=== PATIENT | female | born 1980 | race Caucasian/White ===

== ENCOUNTER 2024-05-13 00:04 | Day surgery (SDC) | payer OTHER, SELFPAY ==
[2024-05-06 15:24] VITALS: BMI 45.1
--- NOTE | 2024-05-06 15:33 | PC.NURSE ---
Report to the Outpatient Waiting Room, entrance under the green pavilion located off [facility], at time _0600_ on date _[id number]_. Planned Procedure Time: _0730_.? Time changes happen often and if your time is changed the preop area will call you the afternoon before. - You and your visitor will be asked to self-screen and do not enter if you have any COVID symptoms. Please call surgeon if you need to reschedule. - A mask is optional within the hospital at this time. Patients may have clear liquids (water, carbonated beverages, clear teas, apple juice) until 3 hours prior to surgery with a maximum of 20 ounces. - No food from midnight until time of surgery and no smoking Take only the following medications with a SIP of water on the morning of surgery: ____Advair, Flonase and Sertraline____ DO NOT STOP ANY OF YOUR OTHER PRESCRIPTION MEDICATIONS PRIOR TO SURGERY EXCEPT THE FOLLOWING Medications to discontinue per physician ___None___ Please no make-up, nail azeri, hairspray, perfume, deodorant, or body powder the day of surgery.? No jewelry (including any body piercings) or valuables the day of surgery, leave them at home.? Please take a shower or bath the night before, or the morning of, surgery with an antibacterial soap.? Wear comfortable, loose fitting clothing.? - Jewelry must be removed prior to entering the operating room.? Rings and piercings that are not removed may be cut off. - The hospital will not accept responsibility for valuables.? - Please leave all valuables, including medications, at home the day of surgery. If you are going home after surgery, a licensed road driver must drive you home.? - NO public transportation without another adult if you receive anesthesia. - We recommend that an adult stay with you for 24 hours following discharge. - We also recommend that you do not drive, make important decision, drink alcoholic beverages, or take any drugs that were not prescribed by your health care provider for at least 24 hours after your discharge time. Follow any additional instructions given to you from your surgeon. Telephone instructions given to __Melodie__and asked if any additional questions and then verbalized understanding. Patient advised to call surgeon office or pre surgery nurse liaison [phone] if any additional questions.
[2024-05-13 06:11] VITALS: BP 141/76; PULSE 57; RESP 18; TEMP 36.1; O2SAT 99
[2024-05-13] MEDS: ACETAMINOPHEN 500 MG TABLET 1000 MG PO (06:30)
[2024-05-13] MEDS: LACTATED RINGERS 1,000 ML 30 ML IV CONT (06:35)
--- NOTE | 2024-05-13 06:49 | P.PNAN_ITS ---
Anes - Initial Pre Proc Eval Procedure: Operation Date: 05/13/24 07:30 Proposed Procedures p Hysteroscopy Dilation and Curettage - Mar George MD Date/Time: 05/13/24 06:49 Surgeon: Mar George MD Pre Op Diagnosis: menorrhagia Patient Data Age: 44 Gender: F Height: 1.7 m Weight: 130.9 kg Allergies Allergy/AdvReac Type Severity Reaction Status Date / Time amoxicillin Allergy Severe Anaphylactic Verified 05/06/24 15:16 Shock latex Allergy Mild Hives Verified 05/06/24 15:16 Home Medications Medication Instructions Recorded Confirmed Type gmmxmhb-wvqmrnmbiexul-gdyyklgq 250 1 tablet PO Q4-6H PRN Headache 05/06/24 05/06/24 History mg-250 mg-65 mg tablet (Excedrin Migraine) benralizumab 30 mg/mL subcutaneous 30 mg subcut MONTHLY 05/06/24 05/06/24 History auto-injector (Fasenra Pen) diphenhydramine HCl 50 mg capsule 50 mg PO QID PRN Migraine Headache 05/06/24 05/06/24 History epinephrine 0.3 mg/0.3 mL 0.3 ml subcut DAILY PRN Allergy 05/06/24 05/06/24 History injection, auto-injector Symptoms fluticasone 250 mcg-salmeterol 50 1 inh inhalation BID 05/06/24 05/06/24 History mcg/dose blistr powdr for inhalation fluticasone propionate 50 2 spray intranasal DAILY 05/06/24 05/06/24 History mcg/actuation nasal spray,suspension ipratropium 0.5 mg-albuterol 3 mg 0.5 ml inhalation QID PRN Dyspnea 05/06/24 05/06/24 History (2.5 mg base)/3 mL nebulization soln loratadine 10 mg tablet 10 mg PO DAILY 05/06/24 05/06/24 History montelukast 10 mg tablet 10 mg PO DAILY 05/06/24 05/06/24 History ondansetron 4 mg disintegrating 4 mg PO QID PRN Nausea 05/06/24 05/06/24 History tablet sertraline 25 mg tablet 25 mg PO DAILY 05/06/24 05/06/24 History topiramate 50 mg tablet 50 mg PO BID 05/06/24 05/06/24 History Patient hx anesthesia problems: none Family hx anesthesia problems: none Results Review: All pre-operative results and documents have been reviewed as part of the pre- operative evaluation. [facility] Past Medical History Medical History (Updated 05/13/24 @ 06:50 by Ahsan Pro MD) Asthma Morbid obesity MARY LOU (obstructive sleep apnea) Family History Family History (Updated 10/16/17 @ 14:40 by DOCTOR UNKNOWN) Other Diabetes mellitus Family history of hypercholesterolemia Family history of migraine headaches Family history of obesity Family history of thyroid disease Hypertension Social History Social History Smoking status: Never smoker Alcohol intake: current Living arrangements: with family Spiritual care concerns: No Anes - Eval Final PreProcedure Day of Procedure 05/13/24 06:49 Patient weight: morbidly obese Heart: regular rate and rhythm Lungs: clear to auscultation Airway: Mallampati scale class II Neurological: alert and oriented Last oral intake: >/= 8 hours ASA classification: III Emergent: no Anesthetic plan: proceed Anesthesia type and monitoring: general GIVS and standard monitoring Results Review: All pre-operative results and documents have been reviewed as part of the pre- operative evaluation. Informed Consent: The patient's anesthetic plan and its attendant risks and benefits were discussed with the patient/family/POA. Questions were solicited and answers provided to the satisfaction of the patient/family/POA.
--- NOTE | 2024-05-13 07:13 | WPDHPUPDATE1 ---
History and Physical Update Update Date/Time: 05/13/24 07:13 History and Physical has been reviewed, including an updated exam of the patient. There are NO changes in the patient's condition. Risks, benefits, and alternatives have been discussed and questions answered. Patient agrees to proceed with procedure.
--- NOTE | 2024-05-13 07:13 | PM.HPGS ---
History of Present Illness History of Present Illness Consent: Risks, benefits, and alternatives have been discussed and questions answered. Patient agrees to proceed with procedure. Chief complaint: menorrhagia Narrative: Melodie Navas is a 44 year old female the onset heavy cycles. It was recommended to undergo D&C hysteroscopy. Risks of infection, bleeding, perforation, and possible pathology are discussed. Patient voices understanding and agrees to proceed. Review of Systems Review of Systems: not repeated day of surgery; patient states no changes in status PMFSH Past Medical History Medical History (Updated 05/13/24 @ 07:16 by Mar George MD) Anxiety Asthma Hypothyroid Migraine Morbid obesity (normal spontaneous vaginal delivery) x2 MARY LOU (obstructive sleep apnea) Surgical History Surgical History (Updated 05/13/24 @ 07:15 by Mar George MD) Status post laparoscopic cholecystectomy Family History Family History (Updated 10/16/17 @ 14:40 by DOCTOR UNKNOWN) Other Diabetes mellitus Family history of hypercholesterolemia Family history of migraine headaches Family history of obesity Family history of thyroid disease Hypertension Social History Social History Smoking status: Never smoker Alcohol intake: current Living arrangements: with family Spiritual care concerns: No Meds Home Medications and Allergies Home Medications Medication Instructions Recorded Confirmed Type fakpcly-qnydrjunegarx-dfnmxyxj 250 1 tablet PO Q4-6H PRN Headache 05/06/24 05/06/24 History mg-250 mg-65 mg tablet (Excedrin Migraine) benralizumab 30 mg/mL subcutaneous 30 mg subcut MONTHLY 05/06/24 05/06/24 History auto-injector (Fasenra Pen) diphenhydramine HCl 50 mg capsule 50 mg PO QID PRN Migraine Headache 05/06/24 05/06/24 History epinephrine 0.3 mg/0.3 mL 0.3 ml subcut DAILY PRN Allergy 05/06/24 05/06/24 History injection, auto-injector Symptoms fluticasone 250 mcg-salmeterol 50 1 inh inhalation BID 05/06/24 05/06/24 History mcg/dose blistr powdr for inhalation fluticasone propionate 50 2 spray intranasal DAILY 05/06/24 05/06/24 History mcg/actuation nasal spray,suspension ipratropium 0.5 mg-albuterol 3 mg 0.5 ml inhalation QID PRN Dyspnea 05/06/24 05/06/24 History (2.5 mg base)/3 mL nebulization soln loratadine 10 mg tablet 10 mg PO DAILY 05/06/24 05/06/24 History montelukast 10 mg tablet 10 mg PO DAILY 05/06/24 05/06/24 History ondansetron 4 mg disintegrating 4 mg PO QID PRN Nausea 05/06/24 05/06/24 History tablet sertraline 25 mg tablet 25 mg PO DAILY 05/06/24 05/06/24 History topiramate 50 mg tablet 50 mg PO BID 05/06/24 05/06/24 History Allergies Allergy/AdvReac Type Severity Reaction Status Date / Time amoxicillin Allergy Severe Anaphylactic Verified 05/06/24 15:16 Shock latex Allergy Mild Hives Verified 05/06/24 15:16 Exam Const: General: healthy appearing and alert Orientation/consciousness: patient oriented x3 Resp: Effort & Inspection: normal respiratory effort Auscultation: clear to auscultation bilaterally Cardio: Rate: regular rate Rhythm: regular rhythm GI: GI Palp: Yes Soft to palpation, No Tenderness to palpation present (GI) and No Palpable mass present : External Female Exam: normal external appearance Speculum Exam - Vagina: normal appearance of the vagina and normal vaginal discharge Speculum Exam - Cervix: normal appearance of the cervix Bimanual exam- vagina & uterus: uterine size normal and consistency normal Bimanual Exam- Adnexa, other: normal adnexae and No adnexal tenderness Neuro: General: patient oriented x3 Assessment and Plan Assessment and plan (1) Menorrhagia: Code(s): N92.0 - Excessive and frequent menstruation with regular cycle Status: Acute Assessment and Plan: plan to proceed with D&C hysteroscopy
[2024-05-13 08:05] VITALS: BP 140/98; PULSE 95; RESP 20; O2SAT 92
[2024-05-13 08:15] VITALS: BP 125/77; PULSE 71; RESP 16; O2SAT 96
--- NOTE | 2024-05-13 08:26 | P.OP_ITS ---
Procedure Note - Detailed Date of Procedure 05/13/24 Pre-op Diagnosis menorrhagia Post-op Diagnosis Same Procedure Performed D&C hysteroscopy Surgeon Mar George MD Anesthesia MAC Findings uterus sounds to 8cm; small polyp in the endocervix; endometrium appears grossly normal Description of Procedure The patient is taken to the operating room and placed under anesthesia in dorsal lithotomy position. She was prepped and draped in the usual sterile fashion. [place] speculum was placed in the vagina and the cervix grasped on the anterior lip with a tenaculum. Uterus was sounded to 8cm. The diagnostic hysteroscope was placed and with the above-stated findings it is removed. The cervix was dilated to a 5 [place]. The polyp forceps are used to attempt to remove the endocervical polyp. This was not successful. The sharp OO curette is used to curette the endometrium and the endocervix until a good uterine cry was noted in all areas. This was successful in removing the endocervical polyp. All instruments were removed. Sponge, needle, and instrument counts are correct per the OR staff. Patient was awakened from anesthesia and taken to recovery in stable condition. Estimated Blood Loss 5 Drains No Packing No Pathology Yes ( Endometrial and endocervical curettings) Complications No immediate complications Condition Stable Disposition PACU
[2024-05-13 08:40] VITALS: BP 112/74; PULSE 64; RESP 16
[2024-05-13 10:06] LABS: BEDSIDEPREGUCG Negative (Negative)
== END 2024-05-13 08:48 | disposition home or self-care (01) ==
PROVIDERS: Visit Provider Obstetrics & Gynecology Gynecology
PROC: 0U5B8ZZ Destruction of Endometrium, Via Natural or Artificial Opening Endoscopic (ICD-10-PCS; CPT 58563; principal; 2024-05-13 07:30)
DX: N84.0 Polyp of corpus uteri (principal); J45.909 Unspecified asthma, uncomplicated; G47.33 Obstructive sleep apnea (adult) (pediatric); F41.9 Anxiety disorder, unspecified; E03.9 Hypothyroidism, unspecified; E66.01 Morbid (severe) obesity due to excess calories; Z68.41 Body mass index [BMI] 40.0-44.9, adult; Z79.82 Long term (current) use of aspirin; Z79.51 Long term (current) use of inhaled steroids; Z79.85 Long-term (current) use of injectable non-insulin antidiabetic drugs; Z98.890 Other specified postprocedural states; Z90.49 Acquired absence of other specified parts of digestive tract
CPT/HCPCS: 58558; 88305; A9270; J1100; J1596; J2003; J2250; J2405; J2704; J3010; J7120